=== PATIENT | female | born 1975 | race Caucasian/White ===

== ENCOUNTER → 2019-04-07 11:40 | Outpatient (CLI) | payer OTHER, SELFPAY ==
[2019-04-10 12:31] LABS: HPV Reflexed? NOT INDICATED
== END ==
PROVIDERS: Family Provider Internal Medicine; PCP Internal Medicine; Referring Provider Obstetrics & Gynecology; Visit Provider Obstetrics & Gynecology
DX: Z12.4 Encounter for screening for malignant neoplasm of cervix (principal)
CPT/HCPCS: 87624; 88175; G0145

== ENCOUNTER → 2019-04-27 14:19 | Outpatient (CLI) | payer OTHER, SELFPAY ==
--- NOTE | 2019-04-27 14:22 | BI_ITS ---
MAMMOGRAPHY - BILATERAL SCREENING 3-D TOMOSYNTHESIS REASON FOR EXAM: Female, 44 years old. Bilateral Screening 3-D tomosynthesis PERTINENT HISTORY: Breast reduction surgery in 2011. TECHNIQUE: 2-D mammograms and 3-D Tomosynthesis of the breast (s) were performed. CAD was performed. COMPARISON: July 08, 2008 FINDINGS: The breast composition is heterogeneously dense that can obscure small breast masses. Scattered benign calcifications are seen. No dense spiculated masses or suspicious microcalcifications are identified. No architectural distortion is identified. There is no skin thickening or retraction. There has been no significant change since the prior study. BI/SCREEN MAMM (CAD) W/KAILEY BILAT IMPRESSION: No mammographic signs of malignancy. Routine yearly mammograms recommended. ASSESSMENT CATEGORY: BIRADS Category 1: Negative. A letter regarding these results will be sent to the patient by the facility within 30 days. FOLLOW UP RECOMMENDATION: Yearly follow up mammogram recommended. (A) Approximately 10% of breast cancers are not detected by mammography. A normal mammogram should not delay biopsy of a clinically suspicious abnormality. Electronically Signed: Karl Painter MD at 17:43 EDT , Service support ,
== END ==
PROVIDERS: Referring Provider Obstetrics & Gynecology; Visit Provider Obstetrics & Gynecology
DX: Z12.31 Encounter for screening mammogram for malignant neoplasm of breast (principal)
CPT/HCPCS: 77063; 77067

== ENCOUNTER → 2019-10-14 15:46 | Outpatient (CLI) | payer OTHER, SELFPAY ==
[2019-10-14 19:30] LABS: Chlamydia Trachomatis by PCR Negative (Negative); Neisserai gonorrhoeae by PCR Negative (Negative); Probe Check PASS; Sample Adequacy Control PASS; Specimen Processing Control PASS
== END ==
PROVIDERS: Visit Provider Obstetrics & Gynecology
DX: Z11.3 Encounter for screening for infections with a predominantly sexual mode of transmission (principal)
CPT/HCPCS: 87491; 87591

== ENCOUNTER → 2019-11-02 14:45 | Outpatient (CLI) | payer OTHER, SELFPAY ==
[2019-11-02 17:23] LABS: Color, Urine Yellow (Yellow); Glucose, Dipstick Normal (Normal); Ketone-Dipstick 5 mg/dl (Negative); Leukocyte Esterase-Dipstick 25 /ul (Negative); Nitrite-Dipstick Negative (Negative); Occult Blood-Urine Negative /ul (Negative); Protein-Dipstick Negative (Negative); Specific Gravity, Urine 1.025 (1.002-1.030); Urine Bilirubin Dipstick Negative (Negative); Urine Clarity Sl. Cloudy (Clear); Urine Urobilinogen Normal (Normal)
[2019-11-02 17:34] LABS: Absolute Lymphocyte Count 1.65 X10^3/uL (0.83-4.51); Absolute Neutrophil Count 8.1 X10^3/uL (2.0-7.7); Basophil# 0.03 X10^3/uL; Basophil% 0.3 % (0-1); Eosinophil# 0.04 X10^3/uL; Eosinophils% 0.4 % (0-5); Hematocrit 38.9 % (37-47); Hemoglobin 12.9 g/dL (12.0-15.0); Lymphocyte # 1.65 X10^3/ul (4.0); Lymphocyte % 15.7 % (19-41); Mean Corp Hgb Conc 33.2 g/dL (32-36); Mean Corpuscular Hgb 30.4 pg (27.0-32.0); Mean Corpuscular Volume 91.7 fL (81-99); Mean Platelet Vol. 10.2 fl (6.2-12.0); Monocyte# 0.57 X10^3/uL; Monocyte% 5.4 % (0-10); NRBC Flagged by Analyzer 0 % (0-5); Neutrophil # 8.11 X10^3/uL (2.7-7.7); Neutrophil % 77.2 % (47-70); Platelet Count 270 K/mm3 (150-450); RBC Distribution Width CV 12.6 % (11.6-14.6); RBC Distribution Width SD 41.7 fl (35.1-43.9); Red Blood Count 4.24 M/mm3 (4.2-5.4); White Blood Count 10.5 K/mm3 (4.4-11.0)
[2019-11-02 18:01] LABS: Thyroid Stim Hormone (TSH) 0.74 uIU/mL (0.358-3.74)
[2019-11-02 19:05] LABS: Amphetamine Urine VISTA NEGATIVE (<1000 ng/mL); Barbiturate Urine VISTA NEGATIVE (< 200 ng/mL); Benzodiazepine Urine VISTA NEGATIVE (< 200 ng/mL); Cocaine Urine VISTA NEGATIVE (< 300 ng/mL); Ecstacy Urine VISTA NEGATIVE (< 500 ng/mL); Methadone Urine VISTA NEGATIVE (< 300 ng/mL); PCP Urine VISTA NEGATIVE (< 25 ng/mL); THC Urine VISTA NEGATIVE (< 50 ng/mL); Vista UDS pH Range 6
[2019-11-03 09:55] LABS: HIV - WCH Non-Reactive (Nonreactive); Hepatitis B Surface Antigen Non-Reactive (Nonreactive); Hepatitis C Antibody Non-Reactive (Nonreactive); Rubella IgG > 500.0 IU/mL
[2019-11-05 02:24] LABS: Prenatal RPR NONREACTIVE (NONREACTIVE)
== END ==
PROVIDERS: Visit Provider Advanced Practice Midwife
DX: Z34.81 Encounter for supervision of other normal pregnancy, first trimester (principal)
CPT/HCPCS: 36415; 80307; 81002; 84443; 85025; 86703; 86762; 86803; 87340

== ENCOUNTER → 2020-03-03 17:27 | Outpatient (CLI) | payer OTHER, SELFPAY ==
[2020-03-03 17:52] LABS: Hematocrit 32.6 % (37-47); Hemoglobin 10.4 g/dL (12.0-15.0); Mean Corp Hgb Conc 31.9 g/dL (32-36); Mean Corpuscular Hgb 28.3 pg (27.0-32.0); Mean Corpuscular Volume 88.6 fL (81-99); Mean Platelet Vol. 9.5 fl (6.2-12.0); Platelet Count 203 K/mm3 (150-450); RBC Distribution Width CV 13.5 % (11.6-14.6); RBC Distribution Width SD 43.8 fl (35.1-43.9); Red Blood Count 3.68 M/mm3 (4.2-5.4); White Blood Count 12.2 K/mm3 (4.4-11.0)
[2020-03-03 17:54] LABS: Glucose Challenge Gest 1H 50g 140 mg/dL (70-140)
== END ==
PROVIDERS: Referring Provider Obstetrics & Gynecology; Visit Provider Obstetrics & Gynecology
DX: Z34.83 Encounter for supervision of other normal pregnancy, third trimester (principal)
CPT/HCPCS: 82950; 85027

== ENCOUNTER 2020-05-16 09:45 | Inpatient (IN) | payer OTHER, SELFPAY ==
--- NOTE | 2020-05-15 21:21 | PCM.HP.BLA ---
History and Physical Date of Admission: 05/16/20 ACOG ANTEPARTUM RECORD - HISTORY AND PHYSICAL (05/15/2020) Name: PRINCESS OCONNELL History of This : This is a 45-year-old G5, P3 Ab1 who presents for repeat section at 39 weeks 1 day gestation. care is remarkable for 3 prior sections. OB Physician: PEGGY 's Physician: Santiago ...................................................................... : 1975 Age: 45 Address: [address] [place] [address] Phone: (H) [phone] (O) [phone] Insurance Carrier: [facility] [id number] Emergency Contact: TORRESVIKI MORTENSEN [phone] ...................................................................... Final CHRISTINA: 05/22/20 By Ultrasound: 8 weeks 3 days PARITY: (G-Total Pregnancies P-Fullterm,Premature,Induced AB,Spont AB, Ectopics, Multiple,Living) CHRISTINA CONFIRMATION: By LMP: 08/19/19 Initial Exam: 05/25/20 By First Ultrasound Exam: 05/22/20 Final CHRISTINA: 05/22/20 OB PROBLEM LIST: ALLERGIES- FLUOXETINE, ROBITUSSIN AC, NUVA RING. ?LGA at 3D u/s in [place]. Start weekly NST at 34 wks gestation. AMA Declines AFP and CF. [id number] drawn at NOB visit. Had Breast Reduction surgery 2011 Wants to nurse.. Advised [facility] [place] book After Reduction Surgery. THREE prior C sections Plan repeat C section ALLERGIES: Fluoxetine Despair, upset stomach, more tearful Fluoxetine Mood changes NuvaRing Itching of skin Robitussin A-C Hallucinations Tussinex Hallucinations MEDICATIONS: ferrous sulfate 325 mg (65 mg iron) tablet One pill by mouth once a day hydroxyzine HCl 25 mg tablet One or two pill by mouth three times a day prn itching 28 mg iron-800 mcg tablet One pill by mouth once a day SOCIAL HISTORY: Smoking - used to smoke but quit and 2002 Alcohol Use - socially not while Diet - moderate, balanced diet and 1-2 cups of coffee qd. Water 1-2liters day. Lifestyle - moderate stress lifestyle and getting divorce Exercise - minimal and Enc to walk 20 min qd. 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 Illicit Drug Use - None Sexual Activity - did not discuss sexual history Residence - owns a home Place of - [employer] Hours Worked - 35 HRS Spouse-Sig Other Name - Dwayne COLESB Spouse-Sig Other Occupation - [employer], cement dry chain operator Spouse-Sig Other Phone No - [phone] Children Name(s) - Justin Barun (OBDULIO), Chivo Brantley-2009 (OBDULIO) PRIOR DELIVERY HISTORY DEL DATE GEST LAB WT LB WT OZ TYPE ANES LABOR TX Feb 07 39 0 8 2 C-Sec Spinal No March 07 39 0 10 0 C-Sec Spinal No March 13 38 0 8 2 C-Sec Spinal No ANTEPARTUM FLOW CHART VISIT GE RTC FU F F HI U U DATE WK MD WKS HT PN HR M SS BP ED WT HI GL D EF ST __ ____ ___ __ __ ___ __ __ __ ___ __ __ __ ___ __ 08 May JMW 3 41 + + 126/64 1+ 236 - - 01 May CH 1 44 + + 110/64 1+ 238 ne ne Apr 36 JMW 1 40 + + 122/70 1+ 236 - - 18 Apr JMW 1 41 + + 124/72 1+ 233 tr - 10 Apr JMW 1 39 + + 112/70 1+ 233 tr - 18 April 03 JMW 3 31 + + 110/60 1+ 222 tr - 30 Mar 01 JMW 3 28 + + 132/66 1+ 219 - - 30 Jan 25 JMW 4 + / 0 02 Jan 21 JMW 4 20 + + 132/80 sl 200 tr - 27 Nov 18 JMW 4 15 + 114/60 tr 186 tr ne 30 Oct 14 KW 4 on US 100/74 0 171 tr - ANTEPARTUM NOTE(S): May 11 2020: see note May 04 2020: Apr 28 2020: Good FM, reactive NST Apr 21 2020: Itching all over, check bile acids Apr 13 2020: NST-R March 21 2020: see note Mar 03 2020: CBC,OGCT Today,Good FM,Feeling Well Feb 01 2020: Telemed: Doing well. Will stop by for glucola Jan 03 2020: Sono Today,Good FM Nov 30 2020: Declines AFP Nov 02 2019: feeling well. NOB visit today. COMPREHENSIVE ANTEPARTUM NOTE(S): May 11 2020: Princess is here for PNV/ preop. scheduled for 05/16/2000. Procedure consents reviewed and signed. Ensure instructions given. Told pt to call with any questions she has before procedure. Good FM. 1+ edema in feet, sl in hands. Very excited to have baby and no complaints at this time. MK May 04 2020: Princess is here for NST and appt at 37.3 w. Having cramping at home. No SROM or show. Baby active. Questions about nursing post breast reduction discussed. Baby will need close follow up of weight by ped, Dr Henderson. Asks about taking goat's rue as recommended by IBCLC in [place]. Per CH not to take during . Skin to skin with rooming in and frequent suggested with observation of output. She is agreeable. NST read as reactive by NEHAL. DARCY. May 04 2020: NST reactive with FHR baseline 130. Reports +FM. Has csection scheduled already and understands signs of labor and to call if going into labor prior to section date. To return in 1 week for NST and PNV with JW. Covid testing order faxed and paper given. Denies any other concerns at this time. - Apr 28 2020: Princess is here for her NST at 36 w 4 d. She states that she is tired and uncomfortable. Last night she had period like cramps. Denies spotting/LoF. +1 edema noted below knees. Princess states that she feels good FM. NST reactive, read per Dr. Ahmadi. AW Apr 21 2020: Princess presents here today for NST and PNV. Reports she continues to itch all over her body and Benadryl is ineffective. Denies visible rash at this time. Good FM. Reactive NST. STEVIE Apr 13 2020: Princess is here for a NST at 34 w 3 d; EEFM/NST explained. She states that she is feeling hot and miserable. Good FM reported. She denies spotting/LoF. Notes occasional mild cramping. +1 edema noted. NST reactive, read per Dr. Ahmadi. AW Mar 21 2020: Princess is being seen for PNV. She is feeling well and has been having an increase in swelling. Pt would like to discuss time off for maternity leave. 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 AM Nov 02 2019: Princess is here for NOB nurse visit as a 44 yo G 5 P 3 with CHRISTINA 05-22-20 planning a RCS at [facility] w spinal, using Dr Henderson for post disch ped care and to breastfeed. 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 She is and is engaged to Dwayne Oconnell who works for [employer] as a cement dry chain operator. This is his first baby. They are excited about the baby. Sandra has 15, 13 and 9 year old children. She is allergic to fluoxetine, Robitussin AC and the Nuva Ring. She has no food or latex allergies. She is allergic to cats. She drinks occ but not once pg was realized. She is a non smoker and denies any street drug use. Sandra's diet is balanced w one cup of coffee daily and about 2 liters of water. Enc to increase water as she can. She is active w her family and job and was enc to walk 20 min q day unless inclement weather or use their treadmill. Genetics Screening form completed noting no family issues. She declines CF and AFP but is having [id number] drawn today with routine labs. Warning signs in pg reviewed as well as OTC meds ok to take., lifting restrictions of 25#, reaching the office after hours and the importance of protein in her diet w understanding voiced. She has a copy of What to Expect. She is aware of litter box issues. Office info for Saturday Childbirth Class given and discussed. Sandra's past history includes breast reduction surgery w removal of 3# of tissue. Her surgeon said her odds of were 50 50. Advised to get the book by Rachel Daley Defining Your Own Success, After Reduction Surgery which she plans to do. Enc to call w any concerns or questions she may have. Visit took approx one hour. Marin WILSON. Nov 02 2019: Feeling well; denies cramping, VB, LOF; Dating US, labs drawn and NOB visit today; growth on US inconsistent w/LMP, changed CHRISTINA to 05/17., 11w6d gestationtoday; discussed warning signs, s/s PTL; RTO 4 weeks for PNV - KVW Oct 14 2019: ok Oct 14 2019: Princess presents here today with FOB(Dwayne) for Missed Menses appointment. 44 y.o. G 5 P 3 non-smoker withhistory of regular menses and LMP of 10-16-19 lasting 5 days. UPT is positive today in our Office. Presents at 7 weeks 6 days with an approximate CHRISTINA of 05-25-20 and plans Repeat at [facility] with history of three C-Sections with last in 2009. Reports having daily nausea and tender breasts. Denies spotting/bleeding thus far, with review of danger signs and bleeding in . Currently taking an OTC Vitamin and Educational Materials given. Medication and Allergy lists up-dated. History of normal pap screening in 04/2019. STEVIE REVIEW OF SYSTEMS: GENERAL - Denies fever, or chills SKIN - Denies rash, new skin lesions, or change in moles EYES - Denies blurred vision, or change in visual acuity EARS - Denies ear pain, or difficulty hearing NOSE - Denies nasal congestion, discharge, or bleeding MOUTH - Denies sore throat, or difficulty swallowing NECK - Denies pain or swelling RESPIRATORY - Denies shortness of breath, cough, wheezing CARDIOVASCULAR - Denies palpitations, chest pain, orthopnea, PND, peripheral edema, syncope or claudication GASTROINTESTINAL - Denies nausea, vomiting, diarrhea, constipation, Denies abdominal pain, melena and or bright red blood GENITOURINARY - Denies dysuria, frequency of urination, urgency, or hesitancy MUSCULOSKELETAL - Denies joint or muscle pain, or back pain NEUROLOGICAL - Denies localized numbness, weakness, or tingling PSYCHIATRIC - Denies depression, anxiety, substance abuse or suicide attempts ENDOCRINE - Denies heat or cold intolerance, weight loss or gain, increasing thirst HEMATO-IMMUNOLOGIC - Denies easy bruising, bleeding, oral ulcerations or recurrent infections GENETICS SCREENING: Age 35+ years: Yes Thalassemia: No Neural Tube Defect: No Down Syndrome: No AMELIA-SACHS: No Sickle Cell Disease: No Hemophilia: No Musc. Dystrophy: No Cystic Fibrosis: No-declines screening Zoey Chorea: No Mental Retardation: No Fragile X: No Other genetic: No Other defects: No SABs/still births: Yes x1 Drugs since LMP: No INFECTION HISTORY: High risk AIDS: No High risk Hepatitis: No Exposed to TB: No Exposed to Herpes: ?, not been tested Rash/viral illness since LMP: No History of STD: Trichomonas MENSTRUAL HISTORY: *Menses Amount/Duration: 6 daysMenses Regularity: RegularFrequency: monthlyBCP's at Conception: NoMenarche (Age Onset): 10HCG+: 06/09/2005* PAST SUMMARY: PARITY: 1. Total Pregnancies............ 5 2. Full Term Pregnancies........ 3 3. Premature.................... 0 4. Abortions - Induced.......... 0 5. Abortions - Spontaneous...... 1 6. Ectopics..................... 0 7. Multiple Births.............. 0 8. Living Children.............. 3 PAST #2: Date of :.................. 03/13/04 Gestation Weeks:................ 39 Length of labor(hours):......... 0 Sex:............................ M Weight-lbs:............... 10 Weight-oz:................ 0 Type of Delivery:............... C-Sect Type of Anesthesia:............. Spinal Place of Delivery:.............. [place] Treatment of Labor?:.... No Comment: MARIO PAST #3: Date of :.................. 02/08/06 Gestation Weeks:................ 39 Length of labor(hours):......... 0 Sex:............................ F Weight-lbs:............... 8 Weight-oz:................ 2 Type of Delivery:............... C-Sect Type of Anesthesia:............. Spinal Place of Delivery:.............. [place] Treatment of Labor?:.... No Comment: PAST #4: Date of :.................. 03/14/10 Gestation Weeks:................ 38 Length of labor(hours):......... 0 Sex:............................ M Weight-lbs:............... 8 Weight-oz:................ 2 Type of Delivery:............... C-Sect Type of Anesthesia:............. Spinal Place of Delivery:.............. [place] Treatment of Labor?:.... No Comment: NO PHYSICAL EXAMINATION General Appearence: 45 yo female in no acute distress Vital Signs: AF, VSS Heart: RRR without rubs or gallops Lungs: CTA x 2 Breasts: deferred Abdomen: gravid Pelvis: Cervix: Presentation: cephalic Station: Fetus: Size: AGA Movement: present Heart: present Labs for : PRINCESS OCONNELL since 08/26/2019 ORDER DATEIN DESCRIPTION VALUE UNITS RANGE A+ COMMENT BILE ACIDS 04/21/20 BILE ACIDS 5.1 umol/L 0.0-10.0 Reviewed by ANGELI GLUCOSE CHALLENGE GEST 1H 50G 03/03/20 NOTE Original Ordering Provider: Angeli Ahmadi GLU GEST 50G 1H 140 mg/dL 70-140 Reviewed by ADIS CBC-COMPLETE BLOOD CNT NO DIFF 03/03/20 NOTE Original Ordering Provider: Angeli Ahmadi WBC 12.2 K/mm3 4.4-11.0 H RBC 3.68 M/mm3 4.2-5.4 L HGB 10.4 g/dL 12.0-15.0 L HCT 32.6 % 37-47 L MCV 88.6 fL 81-99 MCH 28.3 pg 27.0-32.0 MCHC 31.9 g/dL 32-36 L RDW CV 13.5 % 11.6-14.6 RDW SD 43.8 fl 35.1-43.9 PLT 203 K/mm3 150-450 MPV 9.5 fl 6.2-12.0 Reviewed by ADIS [id number] PLUS CORE 11/02/19 GESTATION [place] Gestation FRACTION 5% GESTATIONAL AGE > 9: Yes CHROMOSOME 21 Negative CHROMOSOME 18 Negative CHROMOSOME 13 Negative INTERPRETATION This specimen showed an expected representation of chromosome 21, 18 and 13 material. Clinical correlation is suggested. Y CHROMOSOME Not Detected Y CHROMOSOME INTERPRETATION Consistent with a female fetus. 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 The extracted DNA was then converted into a genomic DNA library for aneuploidy analysis of chromosomes 21, 18, and 13 via next generation sequencing.[1] Optional findings based on the test order include sex chromosome aneuploidy (SCA), and enhanced sequencing series (ESS), which will only be reported on as an additional finding when an abnormality is detected. SCA testing includes information on X and Y representation, while ESS testing includes deletions in selected regions (22q, 15q, 11q, 8q, 5p, 4p, 1p) and trisomy of chromosomes 16 and 22. ABOUT THE TEST The MaterniT(R) 21 PLUS laboratory-developed test (LDT) analyzes circulating cell-free DNA from a maternal blood sample. The test is indicated for use in women with increased risk for chromosomal aneuploidy. Validation data on twin pregnancies is limited and the ability of this test to detect aneuploidy in a triplet has not yet been validated. PERFORMANCE The performance characteristics of the MaterniT(R) 21 PLUS laboratory-developed test (LDT) have been determined in a clinical validation study with women at increased risk for chromosomal aneuploidy.[1,2] The negative predictive value for trisomy 21, 18 and 13 is greater than 99%. PERFORMANCE DATA Note Trisomy 21 Sensitivity: 99.1%; CI: 96.3-99.8% Trisomy 21 Specificity: 99.9%; CI: 99.6-99.9% Trisomy 18 Sensitivity: >99.9%; CI: 92.4-100.0% Trisomy 18 Specificity: 99.6%; CI: 99.2-99.8% Trisomy 13 Sensitivity: 91.7%; CI: 59.7-99.6% Trisomy 13 Specificity: 99.7%; CI: 99.3-99.9% Y Chromosome Accuracy: 99.4%; CI: 99.0-99.6% LIMITATIONS OF THE TEST While the results of these tests are highly accurate, discordant results, including inaccurate sex prediction, may occur due to placental, maternal, or mosaicism or neoplasm; vanishing twin; prior maternal organ transplant; or other causes. Sex chromosomal aneuploidies are not reportable for known multiple gestations. These tests are screening tests and not diagnostic; they do not replace the accuracy and precision of diagnosis with CVS or amniocentesis. A patient with a positive test result should be referred for genetic counseling and offered invasive diagnosis for confirmation of test results.[3] A negative result does not ensure an unaffected nor does it exclude the possibility of other chromosomal abnormalities or defects which are not a part of these tests. An uninformative result may be reported, the causes of which may include, but are not limited to, insufficient sequencing coverage, noise or artifacts in the region, amplification or sequencing bias, or insufficient fraction. These tests are not intended to identify pregnancies at risk for neural tube defects or ventral wall defects. Testing for whole chromosome abnormalities (including sex chromosomes) and for subchromosomal abnormalities could lead to the potential discovery of both and maternal genomic abnormalities that could have major, minor, or no, clinical significance. Evaluating the significance of a positive or a non-reportable result may involve both invasive testing and additional studies on the mother. Such investigations may lead to a diagnosis of maternal chromosomal or subchromosomal abnormalities, which on occasion may be associated with benign or malignant maternal neoplasms. These tests may not accurately identify triploidy, balanced rearrangements, or the precise location of subchromosomal duplications or deletions; these may be detected by diagnosis with CVS or amniocentesis. The ability to report results may be impacted by maternal BMI, maternal weight, maternal systemic lupus erythematosus (SLE) and/or by certain pharmaceutical agents such as low molecular weight heparin (for example: Lovenox(R), Xaparin(R), Clexane(R) and Fragmin(R)). The results of this testing, including the benefits and limitations, should be discussed with a qualified healthcare provider. management decisions, including termination of the , should not be based on the results of these tests alone. The healthcare provider is responsible for the use of this information in the management of their patient. NOTE This test was developed and its performance characteristics determined by [facility]. It has not been cleared or approved by the Food and Drug Administration. This laboratory is certified under the Clinical Laboratory Improvement Amendments (CLIA) as qualified to perform high complexity clinical laboratory testing and accredited by the College of [place] [employer] (CAP). If there is future clinical need for adding MaterniT GENOME testing, this specimen will be available until term. [facility] samples will not be retained beyond [address] [facility] patients will have to send a new sample for re-sequencing ([facility] Test Code: 964121). REFERENCES 1. Dary SERRATO et al. Melissa Med. 2012;14(3):296-305. 2. Dary SERRATO et al. Melissa Med. 2011;13(11):913-920. 3. ACOG/SM Joint Committee Opinion No. 545, Oct 2012. PDF . Reviewed by ANGELI CROOK RPR 11/02/19 NOTE Original Ordering Provider: PHILL Nolen RPR NONREACTIVE NONREACTIVE Reviewed by ANGELI HEPATITIS C ANTIBODY 11/02/19 NOTE Original Ordering Provider: PHILL Nolen HEPATITIS C AB Non-Reactive Nonreactive Non Reactive: < 0.8 Equivocal: >/= 0.8 to < 1.0 Reactive: >/= 1.0 The CDC recommends that a reactive/equivocal HCV antibody result be followed up by the HCV Nucleic Acid Amplification test (201044) Reviewed by ANGELI HEPATITIS B SURFACE ANTIGEN 11/02/19 NOTE Original Ordering Provider: PHILL Nolen HEPB SURFACE AG Non-Reactive Nonreactive Reviewed by ANGELI HIV - [facility] 11/02/19 NOTE Original Ordering Provider: PHILL Nolen HIV - [facility] Non-Reactive Nonreactive Reviewed by ANGELI RUBELLA IGG 11/02/19 NOTE Original Ordering Provider: PHILL Nolen RUBELLA IGG > 500.0 IU/mL Antibody results Interpretation of Immune Status < 5 IU/ml Presumed Non-immune 5 - < 10 IU/ml Equivocal > or = 10 IU/ml Presumed Immune Reviewed by ANGELI T AND S-NO CHARGE W/PNP 11/02/19 Reason for Type AND Screen/Red Cells: Surgery? [facility]~[id number] [place], [address]~ BLOOD TYPE GEL B POSITIVE N AB SCREEN GEL NEGATIVE N Reviewed by ANGELI URINALYSIS, ROUTINE (DIPSTICK) 11/02/19 NOTE Original Ordering Provider: PHILL Nolen COLOR Yellow Yellow CLARITY Sl. Cloudy Clear GLUCOSE, UR Normal mg/dl Normal BILIRUBIN URINE Negative mg/dL Negative KETONE UR 5 mg/dl Negative H SP.GR. DIPSTX 1.025 1.002-1.030 PH UR 6.0 5.0 - 8.0 PROT DIPSTX Negative mg/dl Negative UROBILI Normal mg/dl Normal NITRITE UR Negative Negative OCCULT BLOOD-UR Negative /ul Negative LEUK ESTERASE 25 /ul Negative H Reviewed by ANGELI URINE DRUG SCREEN (VISTA) 11/02/19 NOTE Original Ordering Provider: PHILL Nolen TO BE CONFIRMED CONFIRMATORY TESTING FOR ALL POSITIVE URINE DRUG SCREEN RESULTS WILL ONLY BE SENT OUT UPON PHYSICIAN ORDER. VISTA Urine Drug Screen methods provide only preliminary analytical test results. A more specific alternate chemical method must be used in order to obtain a confirmed analytical result. Gas chromatography/mass spectrometery (GC/MS) is the preferred confirmatory method. Clinical consideration and professional judgement should be applied to any drug of abuse test result, particularly when preliminary positive results are used. URINE TCA TESTING MUST BE ORDERED SEPARATELY. USE TEST MNEMONIC: [facility]IST[facility] UDS PH 6 AMPHETAMINES NEGATIVE <1000 ng/mL BARBITIURATES NEGATIVE < 200 ng/mL BENZODIAZIPINE NEGATIVE < 200 ng/mL COCAINE NEGATIVE < 300 ng/mL ECSTACY NEGATIVE < 500 ng/mL METHADONE NEGATIVE < 300 ng/mL OPIATES NEGATIVE < 300 ng/mL PCP NEGATIVE < 25 ng/mL THC NEGATIVE < 50 ng/mL Reviewed by ANGELI THYROID STIM HORMONE (TSH) 11/02/19 NOTE Original Ordering Provider: PHILL Nolen TSH 0.74 uIU/mL 0.358-3.74 Reviewed by ANGELI CBC W/DIFF, AUTOMATED 11/02/19 NOTE Original Ordering Provider: PHILL Nolen WBC 10.5 K/mm3 4.4-11.0 RBC 4.24 M/mm3 4.2-5.4 HGB 12.9 g/dL 12.0-15.0 HCT 38.9 % 37-47 MCV 91.7 fL 81-99 MCH 30.4 pg 27.0-32.0 MCHC 33.2 g/dL 32-36 RDW CV 12.6 % 11.6-14.6 RDW SD 41.7 fl 35.1-43.9 PLT 270 K/mm3 150-450 MPV 10.2 fl 6.2-12.0 NEUT% 77.2 % 47-70 H LY% 15.7 % 19-41 L MONO% 5.4 % 0-10 EO% 0.4 % 0-5 BASO% 0.3 % 0-1 IM GRAN % 1.000 % 0.0-0.9 H IG% - Immature Granulocytes (promyelocytes, myelocytes and metamyelocytes) > 1% indicates that a LEFT SHIFT is Present. ABSOLUTE NEUT 8.1 X10 3/uL 2.0-7.7 H ABSOLUTE LYMPH 1.65 X10 3/uL 0.83-4.51 NRBC, FLAGGED 0 % 0-5 Reviewed by ANGELI OTOOLE/KHARI [facility] BY PCR 10/14/19 NOTE Original Ordering Provider: Angeli LINARES [facility] PCR Negative Negative KHARI BY PCR Negative Negative Reviewed by ANGELI PROVIDER SIGNATURE ( REQUIRED) Impression /Plan: 39+ week intrauterine for repeat section. Preparations in progress for delivery.
[2020-05-16] VITALS (16 sets, daily range): BP systolic 92–126; BP diastolic 45–74; PULSE 72–94; RESP 16–18; TEMP 36.2–36.7; O2SAT 97–100; BMI 41.8
[2020-05-16] MEDS: Lactated Ringers 1,000 ML 999 ML IV (10:20)
[2020-05-16 10:35] LABS: Absolute Lymphocyte Count 0.98 X10^3/uL (0.83-4.51); Absolute Neutrophil Count 5.7 X10^3/uL (2.0-7.7); Basophil# 0.02 X10^3/uL; Basophil% 0.3 % (0-1); Eosinophil# 0.01 X10^3/uL; Eosinophils% 0.1 % (0-5); Hematocrit 32.5 % (37-47); Hemoglobin 9.8 g/dL (12.0-15.0); Lymphocyte # 0.98 X10^3/ul (4.0); Lymphocyte % 13.6 % (19-41); Mean Corp Hgb Conc 30.2 g/dL (32-36); Mean Corpuscular Hgb 25.7 pg (27.0-32.0); Mean Corpuscular Volume 85.1 fL (81-99); Mean Platelet Vol. 9.5 fl (6.2-12.0); Monocyte# 0.47 X10^3/uL; Monocyte% 6.5 % (0-10); NRBC Flagged by Analyzer 0 % (0-5); Neutrophil # 5.71 X10^3/uL (2.7-7.7); Neutrophil % 79.2 % (47-70); Platelet Count 208 K/mm3 (150-450); RBC Distribution Width SD 60.5 fl (35.1-43.9); Red Blood Count 3.82 M/mm3 (4.2-5.4); White Blood Count 7.2 K/mm3 (4.4-11.0)
[2020-05-16] MEDS: Acetaminophen 500 MG Tablet 1000 MG PO ×2 (10:58→18:46)
[2020-05-16] MEDS: Lactated Ringers 1,000 ML 150 ML IV (11:21)
[2020-05-16] MEDS: Sodium Citrate/Citric Acid 30 ML UDC PO (12:28)
[2020-05-16] MEDS: Cefazolin 2 GM in 0.9% Normal Saline 100 ML IV (12:32)
[2020-05-16] MEDS: Oxytocin 30 units/NS 500 ml 30 UNITS/500 ML IV.SOLN 167 UNITS IV (12:41)
--- NOTE | 2020-05-16 12:47 | OP.PCM_ITS ---
Delivery Classification: Scheduled Final CHRISTINA: 05/22/20 Final CHRISTINA Source: US <20 weeks Gestational age: 39 Weeks and 1 Days port cdl a driver: Destiny Allen Type of Anesthesia:: Spinal - With Duramorph Implants Used: None Date of Procedure: 05/16/20 Pre-Operative Diagnosis: Prior Section Post-Operative Diagnosis: Prior Section Description of Procedure: Surgeon: Luis Alberto Ahmadi MD, FACOG Anesthesia: Michael Jimenez CRNA Procedure: Repeat Low Transverse Cervical Caesarean Section Findings: Viable female with Apgars of 9/10 in occiput anterior presentation with clear amniotic fluid and normal three-vessel placenta. Indication: This is a 45-year-old who presents for her fourth at 39+ weeks gestation. care has otherwise been uneventful. The patient has been counseled regarding the risk and indications of this procedure including the possibility of bleeding infection and injury to surrounding structures such as bowel bladder. All questions were answered. Procedure: Patient was taken to the operating room where after spinal anesthesia was placed, the patient was prepped and draped in usual sterile fashion and a Oates catheter was placed. The abdomen was entered through the patient's prior Pfannenstiel incision and peritoneum was entered bluntly. After developing a bladder flap on the lower uterine segment a low transverse incision was made on the uterus and head was easily delivered onto the operative field the nose mouth and oropharynx were bulb suctioned. Subsequently a viable female was born with Apgars of 9/10. The infant was noted to cry move all extremities vigorously on the operative field. The umbilical cord was doubly clamped and ligated and handed to the nursery personnel who were present for the delivery. Placenta was delivered and noted to be 3 vessels and normal. Uterus was exteriorized and remaining placental tissue was removed. The uterus was then closed in 2 layers first with running locked 0 Vicryl suture followed by a second imbricating layer with 0 Vicryl suture. 0 Vicryl suture was then used in a horizontal mattress interrupted fashion to affect final hemostasis of the uterine incision line. Normal fallopian tubes and ovaries were visualized and the uterus was returned to the pelvis. Hemostasis was noted and rectus abdominis muscles were reapproximated in the midline with interrupted Number 0 Vicryl suture in a horizontal mattress fashion. Fascia was closed with running Number 1 PDS Strata fix suture. Subcutaneous tissue was irrigated with copious amounts of saline solution and then closed with running 3-0 Vicryl suture in 2 layers. Skin was closed with 4-0 monocryl suture in a running subcuticular fashion. Steri strips and a Mepilex dressing were placed across the incision. The patient tolerated the procedure well and was taken to the recovery room in satisfactory condition. Sponge, needle, and instrument counts were all reportedly correct. EBL was less than 500 cc. Cefotan 2 gms IV was given prior to the procedure. Spicemen to Pathology: None Complications: None Amniotic Membrane Rupture Type: Spontaneous Amniotic Fluid Description: Clear Placenta Disposition: [facility] Drain: Oates to straight drain Cord Entanglement: None Cord Vessel Description: 3 Vessels Esitmated Blood Loss (ml): 500 cc Antibiotic Given: Cefotan 2gm IV x1 Pt instructed on risks of surgery: Bleeding, Infection, Injury to surrounding structure(s) including bowel and bladder Complications: None - Admit VTE Documentation VTE Present on Admission: Yes VTE Mechan Device Prophylaxis: SCD's VTE Pharm Prophylaxis ordered?: Yes
--- NOTE | 2020-05-16 12:49 | DCINST_ITS ---
<Luis Alberto Ahmadi - Last Filed: 05/16/20 12:49> Discharge Diet: No Restrictions Discharge Activity: May Not Drive - for 2 weeks, May not drive while taking narcotic pain medications., May Shower, May Take a Tub Bath May resume sexual activity in: 4-6 weeks Lifting Restrictions: 20 pounds Additional Activity Instructions:: Nothing in the vagina for 4-6 weeks. You may return to work/school in 6 weeks. Call your doctor if your incision/area has: Continuous Slow Oozing, Sudden Increased Bleeding, Increased Pain/ Swelling, Increased Redness, Foul Smelling Discharge Call your doctor if you observe: Fever of 101 or Higher, Inability to urinate, Inability to have a bowel movement, Using more than one pad per hour Additional Instructions: If you experience any of the following, contact your healthcare provider. * Bleeding that soaks a pad every hour for 2 hours * Fever 100.4 or higher * Unrelieved incision or abdominal pain * Swelling, redness, discharge or bleeding from your incision or episiotomy site * Your incision begins to separate * Problems urinating (including inability to urinate or burning while urinating). * Visual changes * Severe headache * Flu-like symptoms * Pain or redness in one of both of your breasts * Pain, warmth, tenderness or swelling in your legs, especially the calf area * Frequent nausea and vomiting * Symptoms of depression or anxiety If you experience any of the following, call 911 or go to the nearest Emergency Room. * Chest pain * Problems breathing * Seizure activity * Partial or complete paralysis of a body part, slurred speech, weakness or drooping of the face, or a sudden inability to walk or hold your balance Allergies/Adverse Reactions: Allergies nuvaring Allergy (Severe, Uncoded 05/16/20 10:15) Itching Medications to take at Discharge Docusate Sodium [Colace] 100 mg PO BID PRN PRN #60 cap 05/16/20 Ferrous Sulfate 325 mg PO 05/16/20 Oxycodone [Oxyir] 5 mg PO Q6H PRN PRN 7 Days #20 tab 05/16/20 Vit No.130/Iron/Folic [ Tablet] 1 ea PO 05/16/20 The following prescriptions were given: Docusate Sodium [Colace] 100 mg PO BID PRN PRN #60 cap PRN Reason: Constipation Transmission Status: Received by [facility]/pharmacy #[id number] Oxycodone [Oxyir] 5 mg PO Q6H PRN PRN 7 Days #20 tab PRN Reason: Pain Score 6-10/10 Transmission Status: Received by [facility]/pharmacy #[id number] Follow-Up: Call to make an appointment with your doctor for an incision check in 1-2 weeks. You will also need a 6 week post- follow up appointment. Test results from this visit will be discussed in further detail at your follow- up appointment, if applicable. Please Follow Up With: Luis Alberto Ahmadi MD - [phone] When: Call to make an appointment for an incision check in 2 weeks. Primary Care Physician: Care Physician,No Primary [Primary Care Provider] - <Violeta Breaux - Last Filed: 05/18/20 08:45> Discharge Diet: No Restrictions Discharge Activity: May Not Drive - for 2 weeks or while taking narcotic pain meds., May Shower, May Take a Tub Bath - in 7 days. May resume sexual activity in: 4-6 weeks Lifting Restrictions: 20 pounds Additional Activity Instructions:: Nothing in the vagina for 4-6 weeks. You may return to work/school in 6 weeks. Call your doctor if your incision/area has: Continuous Slow Oozing, Sudden Increased Bleeding, Increased Pain/ Swelling, Increased Redness, Foul Smelling Discharge Call your doctor if you observe: Fever of 101 or Higher Suture Line Care: Avoid Pulling/Pushing, Avoid Pinching/Bending Additional Instructions: If you experience any of the following, contact your healthcare provider. * Bleeding that soaks a pad every hour for 2 hours * Fever 100.4 or higher * Unrelieved incision or abdominal pain * Swelling, redness, discharge or bleeding from your incision or episiotomy site * Your incision begins to separate * Problems urinating (including inability to urinate or burning while urinating). * Visual changes * Severe headache * Flu-like symptoms * Pain or redness in one of both of your breasts * Pain, warmth, tenderness or swelling in your legs, especially the calf area * Frequent nausea and vomiting * Symptoms of depression or anxiety If you experience any of the following, call 911 or go to the nearest Emergency Room. * Chest pain * Problems breathing * Seizure activity * Partial or complete paralysis of a body part, slurred speech, weakness or drooping of the face, or a sudden inability to walk or hold your balance Follow-Up: Call to make an appointment with your doctor for an incision check in 1-2 weeks. You will also need a 6 week post- follow up appointment. Test results from this visit will be discussed in further detail at your follow- up appointment, if applicable.
[2020-05-16] MEDS: Lactated Ringers 1,000 ML 100 ML IV (17:41)
[2020-05-16] MEDS: Ketorolac 30 MG/ML Syringe IV (19:59)
[2020-05-16] MEDS: Cefazolin 1 GM/50 ML BAG IV (20:30)
[2020-05-17] VITALS (11 sets, daily range): BP systolic 98–106; BP diastolic 43–59; PULSE 73–92; RESP 16–18; TEMP 36.2–36.8; O2SAT 97–100
[2020-05-17] MEDS: Acetaminophen 500 MG Tablet 1000 MG PO ×4 (00:50→18:47)
[2020-05-17] MEDS: Ketorolac 30 MG/ML Syringe IV ×3 (01:04→14:51)
[2020-05-17] MEDS: 0.9% Saline Lock 10 ML Syringe IV ×4 (01:05→14:51)
[2020-05-17] MEDS: Enoxaparin 40 MG/0.4 ML Syringe SC ×2 (01:29→22:55)
[2020-05-17] MEDS: Cefazolin 1 GM/50 ML BAG IV ×2 (04:28→12:13)
--- NOTE | 2020-05-17 04:47 | PN.OBGYN_ITS ---
Subjective: Patient without complaints. Tolerating diet well. Minimal vaginal bleeding. Breast-feeding going well. Objective: Wound reportedly clean and dry with Mepilex dressing in place. Good urine output. Hemoglobin pending from this morning. - Physical Exam Vitals/I&O's: Vital Signs Temp Pulse Resp BP Pulse Ox 97.1 F L 76 18 98/59 L 100 05/17/20 00:45 05/17/20 02:50 05/17/20 02:50 05/17/20 00:45 05/17/20 02:50 Oxygen Delivery Method Room Air Weight: 236 lb Body Mass Index (BMI) 41.8 Intake and Output for Last 24 Hours 05/15/20 05/16/20 05/17/20 23:59 23:59 23:59 Intake Total 3940.67 / 3940.67 1218.33 / 1218.33 Output Total 850 / 850 600 / 600 Balance 3090.67 / 3090.67 618.33 / 618.33 Laboratory Results 05/16/20 10:20: WBC 7.2, RBC 3.82 L, Hgb 9.8 L, Hct 32.5 L, MCV 85.1, MCH 25.7 L , MCHC 30.2 L, RDW Std Deviation 60.5 H, RDW Coeff of Drew 20.0 H, Plt Count 208, MPV 9.5, Immature Gran % (Auto) 0.300, Neut % (Auto) 79.2 H, Lymph % (Auto) 13.[address] L, [facility] % (Auto) 6.5, Eos % (Auto) 0.1, Baso % (Auto) 0.3, Absolute Neuts (auto) 5.7, Absolute Lymphs (auto) 0.98, Nucleated RBC % 0 05/16/20 10:20: Blood Type B POSITIVE, Antibody Screen NEGATIVE 05/17/20 04:30: WBC Pending, RBC Pending, Hgb Pending, Hct Pending, MCV Pending, MCH Pending, MCHC Pending, RDW Std Deviation Pending, RDW Coeff of Drew Pending, Plt Count Pending Current Medications Acetaminophen (Tylenol) 1,000 mg PO Q6H DENISE Last Admin: 05/17/20 00:50 Dose: 1,000 mg Documented by: Bisacodyl (Dulcolax) 10 mg RECTAL UD PRN PRN Reason: If no BM Diphenhydramine HCl (Benadryl) 25 mg PO Q6H PRN PRN PRN Reason: ITCHING Stop: 05/17/20 13:52 Enoxaparin Sodium (Lovenox) 40 mg SC DAILY@2200 DENISE Last Admin: 05/17/20 01:29 Dose: 40 mg Documented by: Hydrocortisone (Hytone) 1 applic TOPICAL TID PRN PRN; Protocol PRN Reason: Discomfort Lactated Ringer's () 1,000 mls @ 100 mls/hr IV .Q10H [facility] Last Infusion: 05/17/20 04:11 Dose: Infused Documented by: Naloxone HCl 4 mg/ Dextrose 504 mls @ 0 mls/hr IV .Q0M PRN; Protocol PRN Reason: Respiratory depression Cefazolin Sodium () 1 gm in 50 mls @ 100 mls/hr IV Q8H [facility] Last Admin: 05/17/20 04:28 Dose: 100 mls/hr Documented by: Ibuprofen (Motrin) 600 mg PO Q6 DENISE Ketorolac Tromethamine (Toradol (Bkc)) 30 mg IV Q6H [facility] Stop: 05/17/20 13:31 Last Admin: 05/17/20 01:04 Dose: 30 mg Documented by: Methylergonovine Maleate (Methergine) 0.2 mg IM X1 PRN PRN Reason: Uterine Atony Naloxone HCl (Narcan) 0.02 mg IV Q1M PRN PRN Reason: RR <10 and pt unresponsive Ondansetron HCl (Zofran) 4 mg IV Q4H PRN PRN PRN Reason: Nausea Oxycodone HCl (Oxyir) 5 - 10 mg PO Q4H PRN PRN PRN Reason: Pain Score 4-10/10 Prochlorperazine Edisylate (Compazine Iv) 10 mg IV Q6H PRN PRN PRN Reason: NAUSEA Senna/Docusate Sodium (Senokot-S, Mariaelena-Colace) 1 - 2 tablet PO DAILY [facility] Simethicone (Mylicon) 80 mg PO PCHS PRN PRN Reason: Indigestion/stomach pain Sodium Chloride () 5 - 15 ml IV UD PRN PRN Reason: SALINE FLUSH Last Admin: 05/17/20 01:05 Dose: 10 ml Documented by: Medical Necessity - Tobacco Use Smoking Status: Former smoker Assessment/Plan Doing well post operative day #1 status post routine repeat section. Continuing present care.
[2020-05-17 04:48] LABS: Hematocrit 30.5 % (37-47); Hemoglobin 9.4 g/dL (12.0-15.0); Mean Corp Hgb Conc 30.8 g/dL (32-36); Mean Corpuscular Hgb 26.6 pg (27.0-32.0); Mean Corpuscular Volume 86.2 fL (81-99); Mean Platelet Vol. 9.3 fl (6.2-12.0); POSITIVE MORPHOLOGY YES; Platelet Count 189 K/mm3 (150-450); RBC Distribution Width CV 20.1 % (11.6-14.6); Red Blood Count 3.54 M/mm3 (4.2-5.4); White Blood Count 10.4 K/mm3 (4.4-11.0)
[2020-05-17 04:51] LABS: Scan Indicated on CBC? Y/N YES- FLAGS NOTED
[2020-05-17 05:17] LABS: Differential Comment SCANNED
[2020-05-17] MEDS: Senna/Docusate Sodium 1 Tablet PO (08:59)
[2020-05-17] MEDS: Ibuprofen 600 MG Tablet PO (20:48)
[2020-05-18] MEDS: Acetaminophen 500 MG Tablet 1000 MG PO ×2 (00:55→07:06)
[2020-05-18] MEDS: Ibuprofen 600 MG Tablet PO ×2 (02:44→08:55)
[2020-05-18 02:47] VITALS: BP 118/61; PULSE 83; RESP 16; TEMP 36.4; O2SAT 98
[2020-05-18 08:45] VITALS: BP 110/59; PULSE 86; RESP 16; TEMP 36.6; O2SAT 98
--- NOTE | 2020-05-18 08:46 | PN.OBGYN_ITS ---
Subjective: Feeling well today. Would like to discharge. Denies uncontrolled pain or heavy bleeding. Reports tolerating a regular diet, ambulating in her room, urinating well and passing flatus. Cramping, but controlled with oral medication. Objective: VSS. fundus is firm, midline, u/1. Surgical mepilex CDI. Lochia rubra moderate. - Physical Exam Vitals/I&O's: Vital Signs Temp Pulse Resp BP Pulse Ox 97.5 F L 83 16 118/61 98 05/18/20 02:47 05/18/20 02:47 05/18/20 02:47 05/18/20 02:47 05/18/20 02:47 Oxygen Delivery Method Room Air Weight: 107.048 kg Body Mass Index (BMI) 41.8 Intake and Output for Last 24 Hours 05/16/20 05/17/20 05/18/20 23:59 23:59 23:59 Intake Total 3940.67 / 3940.67 1318.33 / 1318.33 Output Total 850 / 850 1600 / 1600 Balance 3090.67 / 3090.67 -281.67 / -281.67 General: Alert, Oriented x3, Cooperative HEENT: Atraumatic, PERRLA, EOMI, Normocephalic Neck: Supple, No JVD, Negative Carotid Bruits Lungs: Clear to auscultation, Normal air movement Cardiovascular: Regular rate, No murmurs Abdomen: Bowel Sounds Present, Soft, Non Tender Extremities: No edema, Capillary Refill Less than 3 Seconds Skin: No rashes, No breakdown Musculoskeletal: No Tenderness to Palpation of Joints or Extremities Neurological: Cranial nerves II-XII grossly intact Psych/Mental Status: Normal Affect, Appropriate Current Medications Acetaminophen (Tylenol) 1,000 mg PO Q6H [facility] Last Admin: 05/18/20 07:06 Dose: 1,000 mg Documented by: Bisacodyl (Dulcolax) 10 mg RECTAL UD PRN PRN Reason: If no BM Enoxaparin Sodium (Lovenox) 40 mg SC DAILY@2200 [facility] Last Admin: 05/17/20 22:55 Dose: 40 mg Documented by: Hydrocortisone (Hytone) 1 applic TOPICAL TID PRN PRN; Protocol PRN Reason: Discomfort Naloxone HCl 4 mg/ Dextrose 504 mls @ 0 mls/hr IV .Q0M PRN; Protocol PRN Reason: Respiratory depression Ibuprofen (Motrin) 600 mg PO Q6H [facility] Last Admin: 05/18/20 02:44 Dose: 600 mg Documented by: Methylergonovine Maleate (Methergine) 0.2 mg IM X1 PRN PRN Reason: Uterine Atony Naloxone HCl (Narcan) 0.02 mg IV Q1M PRN PRN Reason: RR <10 and pt unresponsive Ondansetron HCl (Zofran) 4 mg IV Q4H PRN PRN PRN Reason: Nausea Oxycodone HCl (Oxyir) 5 - 10 mg PO Q4H PRN PRN PRN Reason: Pain Score 4-10/10 Prochlorperazine Edisylate (Compazine Iv) 10 mg IV Q6H PRN PRN PRN Reason: NAUSEA Senna/Docusate Sodium (Senokot-S, Mariaelena-Colace) 1 - 2 tablet PO DAILY [facility] Last Admin: 05/17/20 08:59 Dose: 1 tablet Documented by: Simethicone (Mylicon) 80 mg PO PCHS PRN PRN Reason: Indigestion/stomach pain Last Admin: 05/17/20 08:59 Dose: 80 mg Documented by: Sodium Chloride () 5 - 15 ml IV UD PRN PRN Reason: SALINE FLUSH Last Admin: 05/17/20 14:51 Dose: 10 ml Documented by: Medical Necessity - Tobacco Use Smoking Status: Former smoker Assessment/Plan A/P: S/P repeat csection POD #2 Surgical dressing CDI. Instructions on removing this weekend given Has incision check on the 30th mother with no concerns Normal involution and course To discharge home today with dyad stable
[2020-05-18] MEDS: Senna/Docusate Sodium 1 Tablet PO (11:03)
--- NOTE | 2020-05-18 12:00 | CASEMGMT ---
Social Work Brief Assessment Labor and Delivery Unit Patient Address:[address] [place] [address]., [place] [address] Phone number: [phone] Date of Referral/Notification: 05.16.2020 Time of Referral: 2158 Referred By: Dr. Sierra Reason for Referral: maternal history of anxiety Date of Intervention: 05.18.2020 Time of Intervention: 1200 Informant: Medical record and mother of baby (MOB) Princess Oconnell History: SAYRA is a 45-year-old female who delivered baby girl Caity Oconnell on 05-16-2020. Father of baby (FOB) is Dwayne Oconnell. Caity is the first baby for parents together. SAYRA has 3 children from prior relationships Kade is age 16, Murtaza is age 14, and alan curiel is age 10. 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 SAYRA has a history of anxiety. It is reported that SAYRA took 5 doses of 0.5 mg Ativan over the last 2 weeks due to anxiety and itching. Maternal drug screen on 11/02/2019 was negative, baby's urine tox screen at time of delivery is also negative. Assessment: Met with parents briefly as they were getting ready to discharge from the hospital. MOB reports to be able to go home and will have support from family. MOB reports to be looking forward to being at home. No reported concerns with support system, or supplies for the baby. No voiced concerns by nursing staff regarding parent-child interactions. Provided MOB with a packet on depression and anxiety, what to look for, local resources for support, and online and texting support. MOB be accepting of information being provided by social work assistant. MOB with bright affect, good eye contact, and spontaneous conversation. Plan: MOB and baby being discharged home with support from and family. MOB has been provided information on mood and anxiety disorders. At this time there have been no positive drug screens during or after delivery, so no additional referrals are indicated at this time. Will monitor for meconium drug screen. No further needs requested or indicated. -YADIRA Mcguire, SIL
== END 2020-05-18 12:20 | disposition home or self-care (01) | DRG 788 ==
PROVIDERS: Admitting Provider Obstetrics & Gynecology; Referring Provider Obstetrics & Gynecology; Visit Provider Obstetrics & Gynecology
PROC: 10D00Z1 Extraction of Products of Conception, Low, Open Approach (ICD-10-PCS; CPT 59514; principal; 2020-05-16 12:15)
DX: O65.5 Obstructed labor due to abnormality of maternal pelvic organs (principal); O34.211 Maternal care for low transverse scar from previous cesarean delivery; Z3A.39 39 weeks gestation of pregnancy; Z37.0 Single live birth; Z87.891 Personal history of nicotine dependence; O99.52 Diseases of the respiratory system complicating childbirth; J30.81 Allergic rhinitis due to animal (cat) (dog) hair and dander
CPT/HCPCS: 85025; 85027; 86850; 86900; 86901; 87635; 99218; G2023; J7120; A4216; G0378; U0003

== ENCOUNTER → 2020-06-02 15:50 | Outpatient (CLI) | payer OTHER, SELFPAY ==
[2020-05-16 10:25] VITALS: BMI 41.8
== END ==
PROVIDERS: Visit Provider Obstetrics & Gynecology
DX: R30.0 Dysuria (principal)
CPT/HCPCS: 87086; 87088

== ENCOUNTER → 2020-11-29 13:27 | Outpatient (REF) | payer OTHER, SELFPAY ==
[2020-05-16 10:25] VITALS: BMI 41.8
== END ==
LOC: LABSPEC 13:27
PROVIDERS: Referring Provider Family Medicine; Visit Provider Family Medicine
DX: Z20.828 Contact with and (suspected) exposure to other viral communicable diseases (principal)
CPT/HCPCS: 87635; U0003

== ENCOUNTER → 2021-09-05 15:39 | Outpatient (CLI) | payer OTHER, SELFPAY ==
[2021-09-05 18:05] LABS: Vitamin D,25 Hydroxy 35.7 ng/mL
[2021-09-05 18:13] LABS: Anion Gap 5 (5-15); BUN 11 mg/dL (7-18); BUN/Creat Ratio 13.4 RATIO (10-20); Calcium,Total 8.6 mg/dL (8.5-10.1); Chloride 106 mmol/L (98-107); Cholesterol 186 mg/dL (200); Creatinine, Serum 0.82 mg/dL (0.55-1.02); EST Glomerular Filtration Rate 80 mL/min (>60); Est Glom Filt Rate - Afr Amer 96 mL/min (>60); Glucose 82 mg/dL (74-106); High Density Lipoprotein 55 mg/dL; Sodium Level 138 mmol/L (136-145); Thyroid Stim Hormone (TSH) 0.58 uIU/mL (0.358-3.74); Triglycerides 104 mg/dL; Very Low Density Lipoprotein 21 mg/dL (5-40)
== END ==
PROVIDERS: PCP Family Medicine; Referring Provider Family Medicine; Visit Provider Family Medicine
DX: Z13.220 Encounter for screening for lipoid disorders (principal); Z13.1 Encounter for screening for diabetes mellitus; Z13.29 Encounter for screening for other suspected endocrine disorder; Z13.21 Encounter for screening for nutritional disorder
CPT/HCPCS: 36415; 80048; 80061; 82306; 84443

== ENCOUNTER → 2021-10-23 07:00 | Outpatient (REF) | payer OTHER, SELFPAY | LOC: OLS.WCC 07:00 | PROVIDERS: PCP Family Medicine; Visit Provider Family Medicine | DX: U07.1 COVID-19 (principal) | CPT/HCPCS: 87635; U0005; U0003 ==

== ENCOUNTER 2021-11-21 15:28 | Outpatient (CLI) | payer OTHER, SELFPAY ==
[2021-11-27 20:20] LABS: HPV Reflexed? NOT INDICATED
== END 2021-11-21 23:59 | disposition short-term general hospital (02) ==
LOC: LABSPEC 15:30
PROVIDERS: PCP Family Medicine; Visit Provider Obstetrics & Gynecology
DX: Z12.4 Encounter for screening for malignant neoplasm of cervix (principal)
CPT/HCPCS: 88175; G0145

== ENCOUNTER 2021-12-04 13:53 | Outpatient (CLI) | payer OTHER, SELFPAY ==
--- NOTE | 2021-12-04 13:56 | BI_ITS ---
MAMMOGRAPHY - BILATERAL SCREENING REASON FOR EXAM: Female, 46 years old. Routine annual screening examination. PERTINENT HISTORY: Aunt with breast cancer. History of prior bilateral breast reduction surgery. TECHNIQUE: Digital bilateral breast kailey (3D mammographic acquisition) in the CC and MLO projections. 2-D mediolateral oblique (MLO) and craniocaudad (CC) views of both breasts were obtained. CAD: Full Field Digital Mammography with Computer Added Detection was performed. COMPARISON: Comparison is made with prior study dated 04/27/2019. FINDINGS: Breast Composition: The breasts are heterogeneously dense, which may obscure small masses. There are no dominant masses or suspicious calcifications. Stable small benign-appearing bilateral axillary lymph nodes. No other significant abnormalities are identified. There has been no significant change since the prior study. BI/SCRN MAMM (CAD)W/KAILEY BILAT IMPRESSION: Stable bilateral screening mammogram. Yearly follow-up mammogram recommended. (A) ASSESSMENT CATEGORY: BIRADS Category 2: Benign. A letter regarding these results will be sent to the patient by the facility within 30 days. Approximately 10% of breast cancers are not detected by mammography. A normal mammogram should not delay biopsy of a clinically suspicious abnormality. [id number] Electronically Signed: Sarbjit Morris MD at 14:46 EST ,
== END 2021-12-04 23:59 | disposition short-term general hospital (02) ==
LOC: OPBI 13:54
PROVIDERS: PCP Family Medicine; Referring Provider Obstetrics & Gynecology; Visit Provider Obstetrics & Gynecology
DX: Z12.31 Encounter for screening mammogram for malignant neoplasm of breast (principal)
CPT/HCPCS: 77063; 77067

== ENCOUNTER 2023-01-21 13:30 | Outpatient (RCR) | payer OTHER, SELFPAY ==
--- NOTE | 2023-04-16 12:20 | HP.PT.NRP ---
DYLON BECKFORD was seen in my office for initial evaluation on 12/03/22. The following Plan of Care was established for this patient: Initial Frequency: 2-3x /Week Initial Duration: 8-12 WKS Patient/Client Instruction: Educate patient on: Condition, Plan of Care, Risk Factors For the Purpose of:: To improve self management Therapeutic Exercise to Include: Body mechanics, Postural training, Flexibilty training, Neuromotor development, Dynamic Lumbar Stabilization For the Purpose of:: To decrease pain, To improve muscle performance and motor function, To increase tolerance to activity/condition/position, To improve ability of physical actions for home/community/work/leisure This patient was last seen in our office . Pertinent comments regarding their Physical therapy will appear below: This patient has not returned to Physical Therapy and is appropriate to return to MD for further follow-up as needed. At this point I will be discontinuing this patient from physical therapy. I would be happy to see this patient again in the future if found appropriate by the physician. Thank you! Lisandra Grijalva, PT, Cert MDT
== END 2023-01-21 19:00 | disposition home or self-care (01) ==
LOC: PT 13:30
PROVIDERS: PCP Family Medicine; Referring Provider Urology; Visit Provider Urology
DX: M99.05 Segmental and somatic dysfunction of pelvic region
CPT/HCPCS: 97140; 97162; 97530

== ENCOUNTER → 2023-02-01 | Outpatient (CLI) | payer OTHER, SELFPAY ==
--- NOTE | 2023-02-01 13:48 | CT_ITS ---
STUDY: CT ABDOMEN AND PELVIS WITH AND WITHOUT CONTRAST REASON FOR EXAM: Female, 47 years old. BLADDER PELVIC PAIN RADIATION DOSAGE (If Supplied By Facility): CTDIvol = ( 17.65 ) mGy, DLP = ( 3020.33 ) mGycm TECHNIQUE: Transaxial images were obtained from the dome of the diaphragm to the symphysis pubis without oral contrast. IV 100mL Isovue-300 was administered. Sagittal and coronal images were reconstructed. Individualized dose optimization techniques were used for this CT. COMPARISON: None. FINDINGS: The visualized lung bases are unremarkable. The visualized portions of the heart are within normal limits. Normal liver. Normal gallbladder and extrahepatic biliary system. Normal spleen. Normal pancreas. Normal bilateral adrenal glands. Normal right kidney. Normal left kidney. Normal visualized stomach. Normal small intestine. Normal colon. The appendix is visualized and appears normal. Normal abdominal aorta. Normal inferior vena cava. Normal retroperitoneum. Normal urinary bladder. 3.1 cm cyst in the left ovary. Mildly heterogeneous enlargement of the uterus suggestive of a fibroid uterus. Normal abdominal wall. Mild degree of spondylosis at the L1-L2 level. CT/CT Abd/Pelvis W/WO Contrast IMPRESSION: Findings suggestive of a fibroid uterus with the a 3.1 cm cyst in the left ovary. Electronically Signed: Sarbjit Morris MD at 15:02 EDT ,
== END | disposition home or self-care (01) ==
LOC: CT 13:46
PROVIDERS: PCP Family Medicine; Visit Provider Urology
DX: R39.89 Other symptoms and signs involving the genitourinary system (principal); R10.2 Pelvic and perineal pain; R10.9 Unspecified abdominal pain; M54.9 Dorsalgia, unspecified
CPT/HCPCS: 74178; Q9967

== ENCOUNTER 2023-03-11 06:26 | Day surgery (SDC) | payer OTHER, SELFPAY ==
[2023-03-11] VITALS (7 sets, daily range): BP systolic 89–103; BP diastolic 55–62; PULSE 58–70; RESP 16–18; TEMP 36.3–36.9; O2SAT 96–100; BMI 30.9
[2023-03-11] MEDS: Lactated Ringers 1,000 ML 15 ML IV (06:54)
[2023-03-11 06:58] LABS: Internal QC Validated? YES +Cl - CLEAR BKGD; Pregnancy, Urine Negative Negative
--- NOTE | 2023-03-11 07:01 | PCM.HP.STD ---
HPI - General General Date of Admission: 03/11/23 Date of Service: 03/11/23 Chief Complaint: Screening colonoscopy HPI Narrative DYLON BECKFORD, is a 48 F who presents for a screening colonoscopy. She has never had a colonoscopy in the past. She has no significant past medical history. She is not having any problems with her bowels at this time. She denies any constipation, nausea, vomiting, diarrhea or lower GI bleeding. All other 16 review systems are negative except those are in positive mentioned HPI. [facility] Medical History (Updated 03/06/23 @ 10:21 by Loli Jaime) Adjustment disorder with anxiety Constipation, unspecified Former smoker Low iron Restless legs Unspecified urinary incontinence Home Medications vibegron 75 mg tablet (Gemtesa) 75 mg PO DAILY 01/04/23 [History Last Taken Unknown] Allergy/AdvReac Type Severity Reaction Status Date / Time ethinyl estradiol Allergy Severe Itching Verified 03/11/23 06:53 [From NuvaRing] etonogestrel [From NuvaRing] Allergy Severe Itching Verified 03/11/23 06:53 chlorpheniramine Allergy Other Verified 03/11/23 06:53 [From Tussionex] hydrocodone [From Tussionex] Allergy Other Verified 03/11/23 06:53 Surgical History (Updated 03/06/23 @ 10:21 by Loli Jaime) History of Hx of bilateral breast reduction surgery Social History (Updated 01/04/23 @ 11:44 by Sandra Ding) household members: spouse current occupational status: employed Smoking Status: Former smoker ROS Review of Systems ROS Unobtainable: other Constitutional Constitutional: Denies fatigue, fever(s), poor appetite, weight gain or weight loss ENT HEENT: Denies mouth lesions Cardiovascular Cardiovascular: Denies abdominal bloating, abdominal edema or abdominal pain Respiratory/Chest Respiratory/Chest: Denies change in mental status, change in phlegm color, chest congestion or chest tightness Gastrointestinal Gastrointestinal: Denies belching, bloating, change in bowel habits, change in stool character, chewing difficulty, coffee ground emesis, constipation, cramping, diarrhea, dyspepsia, dysphagia, early satiety, excessive flatus, fecal incontinence, heartburn, hematemesis, hematochezia, hemorrhoids, loose stools, melena, nausea, odynophagia, rectal bleeding, tenesmus, vomiting or weight changes Genitourinary Genitourinary: Denies abdominal discomfort, burning urination or itching Musculoskeletal Musculoskeletal: Reports as per HPI; Denies muscle weakness or myalgias Integumentary Integumentary: Denies jaundice Neurologic Neurologic: Denies lack of coordination or weakness Psychiatric Psychiatric: Denies confusion, depression, memory loss, mood swings, paranoia or suicidal ideation Endocrine Endocrinology: Denies systems reviewed and no addt'l complaints, except as documented Hematologic/Lymphatic Hematologic/Lymphatic: Denies anemia, easy bleeding, easy bruising or lymphadenopathy Allergic/Immunologic Allergic/Immunologic: Denies systems reviewed and no addt'l complaints, except as documented Vital Signs Vital Signs Vital Signs: 03/11/23 06:55 03/11/23 06:55 Temperature 98.5 F Temperature Source Temporal Pulse Rate 70 Respiratory Rate 18 Respiratory Pattern Normal Blood Pressure 103/56 L Blood Pressure Mean 71 Blood Pressure Source Monitor Blood Pressure Position Semi-Fowlers Blood Pressure Location Right Arm Pulse Ox 98 Oxygen Delivery Method Room Air Weight Weight: 175 lb Body Mass Index (BMI) 30.9 Physical Exam Const alert General Appearance: cooperative Orientation / Consciousness: oriented to person HEENT hearing grossly normal bilaterally Head and Scalp: normal to inspection Face and Sinus: face symmetric Nose: external nose normal Mouth: oral and palatal mucosa normal Eyes conjunctivae normal General Eye: normal appearance of both eyes Neck full ROM General: normal visual inspection Lymph Lymphatic: no lymphadenopathy noted Chest inspection of chest normal and palpation of chest normal Chest: symmetrical chest wall rise Resp normal respiratory effort Effort and Inspection: able to speak in complete sentences Cardio regular rate GI non-distended Percussion: normal to percussion Rectal Exam: deferred Neuro Speech: speech normal Gait (Neuro): normal gait Results Lab / Micro Data Labs: Laboratory Results - last 24 hr 03/11/23 06:30: Urine Test Negative Assessment & Plan Assessment/Plan (1) Encounter for screening for malignant neoplasm of colon: PLAN: She was explained alternatives, risk, benefits including outstanding bleeding, infection, sepsis, perforation, need for mergers or . She will have an ASA of 1.
--- NOTE | 2023-03-11 07:30 | COLBX_PTH ---
PATIENT: DYLON BECKFORD LOC: EN U#:[id number] AGE/SX: 48/F ROOM: RE03/11/[address]: Dr. Ok Borges DO : 1975 BED: DIS: 03/11/2023 SPEC #: [id number] RECD: 03/11/23 10:00 STATUS: AWILDA ERWIN #: [id number] RANIJT: 03/11/23 07:[address]: Ok Borges DEPT: SURGICAL PATHOLOGY RECD BY: Latonya Olivera ENTERED: 03/11/23 11:21 SP TYPE: COLON BX OTHR DR: Dr. Mikal Coyle MD Tissues: Ileum, NOS Procedures: Surgery Specimen Level IV HEADER OPERATION: Colonoscopy ? open access (MAC), biopsy PRE-OP DIAGNOSIS: Screening TISSUE SUBMITTED: Terminal ileum biopsy MICROSCOPIC DIAGNOSIS Terminal ileum, biopsy: Fragments of small intestinal mucosa, no pathologic diagnosis. SJ:florian 03/12/2023 MICROSCOPIC DESCRIPTION Slides are reviewed. GROSS DESCRIPTION Received in fixative is one container labeled with the patient's name and designated terminal ileum. The specimen consists of two irregular fragments of light rowe soft tissue that in aggregate measure 1.0 x 0.3 x 0.1 cm. The specimen is totally submitted in one cassette. / SJ:florian 03/11/2023 TC:4 CPT: 66448
--- NOTE | 2023-03-11 07:49 | OP.COLON_ITS ---
Patient Name: Princess Oconnell Procedure Date: 03/11/2023 7:23 AM Date of : 1975 Age: 48 Procedure: Colonoscopy Indications: Screening for colorectal malignant neoplasm Providers: Ok Borges DO Referring MD: Dany Coyle Medicines: Monitored Anesthesia Care Patient Profile: This is a 48 year old female. Refer to note in patient chart for documentation of history and physical. Last Colonoscopy: none. The patient's first colonoscopy is today. Complications: No immediate complications. Procedure: Pre-Anesthesia Assessment: - Prior to the procedure, a History and Physical was performed, and patient medications and allergies were reviewed. The patient is competent. The risks and benefits of the procedure and the sedation options and risks were discussed with the patient. All questions were answered and informed consent was obtained. Patient identification and proposed procedure were verified by the physician in the pre-procedure area. Mental Status Examination: alert and oriented. Airway Examination: normal oropharyngeal airway and neck mobility. Respiratory Examination: clear to auscultation. Prophylactic Antibiotics: The patient does not require prophylactic antibiotics. Prior Anticoagulants: The patient has taken no previous anticoagulant or antiplatelet agents. After reviewing the risks and benefits, the patient was deemed in satisfactory condition to undergo the procedure. The anesthesia plan was to use monitored anesthesia care (MAC). Immediately prior to administration of medications, the patient was re-assessed for adequacy to receive sedatives. The heart rate, respiratory rate, oxygen saturations, blood pressure, adequacy of pulmonary ventilation, and response to care were monitored throughout the procedure. The physical status of the patient was re-assessed after the procedure. After I obtained informed consent, the scope was passed under direct vision. Throughout the procedure, the patient's blood pressure, pulse, and oxygen saturations were monitored continuously. The Colonoscope was introduced through the anus and advanced to the terminal ileum. The colonoscopy was performed without difficulty. The patient tolerated the procedure well. The quality of the bowel preparation was good. Scope In: 7:33:02 AM Scope Withdrawal Time 0 hours 8 minutes 9 seconds Scope Out: 7:44:27 AM Total Procedure Duration Time 0 hours 11 minutes 25 seconds Findings: The perianal and digital rectal examinations were normal. The colon (entire examined portion) appeared normal. The terminal ileum contained a few four mm ulcers. No bleeding was present. Biopsies were taken with a cold forceps for histology. Verification of patient identification for the specimen was done. Estimated blood loss was minimal. Impression: - The entire examined colon is normal. - A few ulcers in the terminal ileum. Biopsied. Recommendation: - Discharge patient to home. - Resume previous diet. - Continue present medications. - Await pathology results. - Repeat colonoscopy in 10 years for screening purposes. Procedure Code(s): --- Professional --- 86809, Colonoscopy, flexible; with biopsy, single or multiple CPT copyright 2017 [employer]. All rights reserved. The codes documented in this report are preliminary and upon automotive brake technician review may be revised to meet current compliance requirements. Ok Borges DO 03/11/2023 7:48:56 AM This report has been signed electronically. Number of Addenda: 0 Note Initiated On: 03/11/2023 7:23 AM
--- NOTE | 2023-03-11 07:50 | OP.CCLET_ITS ---
03/11/2023 Dany Coyle [address] [place] [address] Re : Colonoscopy procedure for Princess Grantted Dear Dr. Coyle This procedure was performed on Saturday, March 11, 2023. My impressions and recommendations are as follows: Impressions : - The entire examined colon is normal. - A few ulcers in the terminal ileum. Biopsied. Recommendations : - Discharge patient to home. - Resume previous diet. - Continue present medications. - Await pathology results. - Repeat colonoscopy in 10 years for screening purposes. My findings are described in the full procedure note, which is enclosed. If I can be of further assistance, please feel free to contact me at . Sincerely, Ok Borges, 03/11/2023 7:48:56 AM This report has been signed electronically.
== END 2023-03-11 08:21 | disposition home or self-care (01) ==
LOC: EN 06:26 → AC 06:28
PROVIDERS: Anesthesiology; PCP Family Medicine; Referring Provider Family Medicine; Visit Provider Internal Medicine Gastroenterology
PROC: 0DJD8ZZ Inspection of Lower Intestinal Tract, Via Natural or Artificial Opening Endoscopic (ICD-10-PCS; CPT 45378; principal; 2023-03-11 07:25)
DX: Z12.11 Encounter for screening for malignant neoplasm of colon (principal); Z87.891 Personal history of nicotine dependence; K63.3 Ulcer of intestine
CPT/HCPCS: 45380; 81025; 88305; J7120; J2405

== ENCOUNTER → 2023-05-02 | Outpatient (CLI) | payer OTHER, SELFPAY ==
[2023-05-02 15:12] LABS: Basophil# 0.05 X10^3/uL; Basophil% 0.5 % (0-1); Eosinophil# 0.12 X10^3/uL; Eosinophils% 1.2 % (0-5); Hematocrit 38.4 % (37-47); Hemoglobin 12.7 g/dL (12.0-15.0); Mean Corp Hgb Conc 33.1 g/dL (32-36); Mean Corpuscular Hgb 29.9 pg (27.0-32.0); Mean Corpuscular Volume 90.4 fL (81-99); Monocyte# 0.51 X10^3/uL; Monocyte% 5.1 % (0-10); NRBC Flagged by Analyzer 0 % (0-5); Neutrophil # 6.96 X10^3/uL (2.7-7.7); Neutrophil % 69.8 % (47-70); Platelet Count 244 K/mm3 (150-450); RBC Distribution Width CV 13.7 % (11.6-14.6); RBC Distribution Width SD 44.2 fl (35.1-43.9); Red Blood Count 4.25 M/mm3 (4.2-5.4)
[2023-05-02 15:33] LABS: Hemoglobin A1c 4.7 % (3.8-5.6)
[2023-05-02 16:02] LABS: hCG Titer Quant., Serum < 1 mIU/mL (1-3)
[2023-05-02 16:14] LABS: Estradiol 148.5 pg/mL; Follicle Stimulating Hormone 8.3 mIU/mL; Luteinizing Hormone 5.9 mIU/mL; Prolactin 10.3 ng/mL; T4 Free Direct 0.99 ng/dL (0.76-1.46); Thyroid Stim Hormone (TSH) 0.91 uIU/mL (0.358-3.74)
== END | disposition home or self-care (01) ==
PROVIDERS: PCP Family Medicine; Visit Provider Nurse Practitioner Women's Health
DX: N93.9 Abnormal uterine and vaginal bleeding, unspecified (principal)
CPT/HCPCS: 82670; 83001; 83002; 83036; 84146; 84439; 84443; 84702; 85025

== ENCOUNTER 2023-08-04 09:52 | Emergency (ER) | payer OTHER, SELFPAY ==
[2023-08-04 09:53] VITALS: BP 120/78; PULSE 79; RESP 14; TEMP 36.6; O2SAT 99; BMI 30.2
--- NOTE | 2023-08-04 11:00 | EDS_ITS ---
HPI History of Present Illness Chief Complaint: Lower Extremity Injury Informant: patient Narrative Narrative: Patient presents with left hip area pain. Patient states she was feeling fine. She had been standing yesterday. She started doing some dancing but states it was no extreme move. She then suddenly felt a sharp pop in the lateral aspect of her left hip and its been painful since. She can bear weight but it hurts. She has no history of this. Rest m akes it better and weightbearing or motion makes it worse. Although the pain is lateral near the greater trochanter. She has no buttock or groin pain. No shortening. No other traumas. No history of frequent fractures. [facility] Medical History Adjustment disorder with anxiety Constipation, unspecified Former smoker Low iron Restless legs Unspecified urinary incontinence Home Medications vibegron 75 mg tablet (Gemtesa) 75 mg PO DAILY 01/04/23 [History Last Taken Unknown] naproxen 500 mg tablet 500 mg PO BID #20 tabs 08/04/23 [Rx Last Taken Unknown] Allergy/AdvReac Type Severity Reaction Status Date / Time ethinyl estradiol Allergy Severe Itching Verified 08/04/23 09:53 [From NuvaRing] etonogestrel [From NuvaRing] Allergy Severe Itching Verified 08/04/23 09:53 chlorpheniramine Allergy Other Verified 08/04/23 09:53 [From Tussionex] hydrocodone [From Tussionex] Allergy Other Verified 08/04/23 09:53 Surgical History History of Hx of bilateral breast reduction surgery Social History household members: spouse current occupational status: employed Smoking Status: Former smoker ROS ROS ED Constitutional Constitutional ED: Denies chills or fever(s) ENT ENT ED: Denies ear pain or sore throat Gastrointestinal Gastrointestinal: Denies nausea or vomiting Musculoskeletal Musculoskeletal: Reports arthralgias; Denies back pain, myalgias or neck pain Integumentary Denies Abrasions or rash Neurologic Neurologic: Denies paresthesias or weakness Allergic/Immunologic Allergic/Immunologic ED: Denies urticaria EXAM Physical Exam Narrative Exam Narrative: General: Patient awake alert sitting comfortably in the bed no acute distress. HEENT shows no sign of trauma. Cardiorespiratory shows easy unlabored breathing. Pulses normal. Saturations are normal. Extremities there is no shortening. No swelling. No rashes. There is no calf swelling tenderness or distended veins. There is no tenderness to the foot ankle edward knee or thigh. She does have some focal tenderness at the greater trochanteric on the left. No real swelling. No inguinal tenderness. I can rotate her hip without pain. I can axial load her hip without pain. All of this seems to be in the greater trochanteric area. Const Vital Signs: 08/04/23 09:53 Temperature 97.9 F Temperature Source Temporal Pulse Rate 79 Respiratory Rate 14 Blood Pressure 120/78 Blood Pressure Mean 92 Pulse Ox 99 Oxygen Delivery Method Room Air MDM MDM MDM Narrative Medical decision making narrative: My independent interpretation of the patient's three-view x-ray of her left hip shows no sign of fracture or dislocation. Final reading is similar. . I think patient likely had tenderness snapping over her greater trochanteric bursa. She has some localized pain and tenderness consistent with a greater trochanteric bursitis. Nonsteroidals rest and ice are appropriate. Radiography Diagnostic Testing: Clinical Impression(s) from Imaging Studies Hip/Pelvis X-Ray 08/04/23 11:25 IMPRESSION: Normal x-ray examination of the pelvis and hip. Electronically Signed: Dean Fuller MD at 11:39 EDT Reading Location ID and State: [address] [place] [address] , Service support , Discharge Plan Triage Chief Complaint: Lower Extremity Injury ED Provider: Drake Pierre Dx/Rx/DC Orders Clinical Impression: Greater trochanteric bursitis of left hip Instructions: ED Bursitis Prescriptions: New naproxen 500 mg tablet 500 mg PO BID Qty: 20 0RF No Action Gemtesa 75 mg tablet 75 mg PO DAILY Primary Care Provider: Dany Coyle Referrals: Dany Coyle MD [Primary Care Provider] - 3-5 Days Disposition Disposition: Home, Self Care
--- NOTE | 2023-08-04 11:25 | RAD_ITS ---
STUDY: X-RAY - PELVIS AND LEFT HIP REASON FOR EXAM: Female, 48 years old. Pain after trauma TECHNIQUE: 3 views of the pelvis and hip. COMPARISON: None. FINDINGS: There is a non-specific bowel gas pattern. Normal visualized soft tissue structures. Normal bilateral iliac wings, sacroiliac joints and visualized sacrum. Normal bilateral superior and inferior pubic rami. Normal pubic symphysis. Normal bilateral ischial tuberosities. Normal visualized femoral head. Normal acetabulum. Normal hip joint. RAD/HIP, UNI W/ Pelvis 2-3 Views IMPRESSION: Normal x-ray examination of the pelvis and hip. Electronically Signed: Dean Fuller MD at 11:39 EDT ,
== END 2023-08-04 12:41 | disposition home or self-care (01) ==
PROVIDERS: Emergency Provider Emergency Medicine; PCP Family Medicine; Visit Provider Emergency Medicine
DX: M70.62 Trochanteric bursitis, left hip (principal); Z87.891 Personal history of nicotine dependence
CPT/HCPCS: 73502; 99282

== ENCOUNTER 2024-06-20 18:10 | Emergency (ER) | payer OTHER, SELFPAY ==
[2024-06-20 18:11] VITALS: BP 116/76; PULSE 78; RESP 16; TEMP 36.5; O2SAT 100; BMI 28.3
--- NOTE | 2024-06-20 18:35 | EDS_ITS ---
HPI HPI - GI History of Present Illness Chief Complaint: Abd Pain Informant: patient and spouse/S.O. Narrative Narrative: 2-day history of persistent mid abdominal pain. Started evening. Has used Tums and Pepto-Bismol with no relief. Over last few hours pain went to right lower quadrant. No fevers or chills. Increasing nausea with no appetite with symptom onset. For in the past. No other abdominal surgeries. No urinary symptoms. Recently finished her menstrual period. No history ovarian issues. Last meal was small around noon today. She drank water prior to arrival. She had last bowel movement was 2 days ago this is not atypical for her. Prior similar symptoms: No PFSH PFSH Medical History Low iron Restless legs Former smoker Constipation, unspecified Unspecified urinary incontinence Adjustment disorder with anxiety Home Medications ?Medication ?Instructions ?Recorded ?Last Taken ?Type NK 06/20/24 Unknown History Allergy/AdvReac Type Severity Reaction Status Date / Time ethinyl estradiol (From Allergy Severe Itching Verified 06/20/24 18:11 NuvaRing) etonogestrel (From NuvaRing) Allergy Severe Itching Verified 06/20/24 18:11 chlorpheniramine (From Allergy Other Verified 06/20/24 18:11 Tussionex) hydrocodone (From Tussionex) Allergy Other Verified 06/20/24 18:11 Surgical History Hx of bilateral breast reduction surgery History of Social History household members: spouse current occupational status: employed Smoking Status: Former smoker ROS ROS ED Constitutional Constitutional ED: Denies chills, fever(s) or sweats Eyes Eyes: Denies change in vision ENT ENT ED: Denies dysphagia or sore throat Cardiovascular Cardiovascular: Denies chest pain, leg edema, palpitations or racing heartbeat Respiratory/Chest Respiratory/Chest: Denies cough, dyspnea or dyspnea on exertion Gastrointestinal Gastrointestinal: Reports abdominal pain and nausea; Denies diarrhea or vomiting Genitourinary Genitourinary ED: Denies dysuria, hematuria or urinary frequency Musculoskeletal Musculoskeletal: Denies back pain, extremity pain or neck pain Integumentary Denies rash or wounds Neurologic Neurologic: Denies headache(s), paresthesias or weakness EXAM Physical Exam Const Vital Signs: 06/20/24 18:11 06/20/24 20:10 06/20/24 21:45 Temperature 97.7 F L 97 F L Temperature Source Temporal Temporal Pulse Rate 78 74 67 Respiratory Rate 16 16 16 Blood Pressure 116/76 104/61 105/67 Blood Pressure Mean 89 75 79 Pulse Ox 100 94 100 Oxygen Delivery Method Room Air Room Air Room Air 06/20/24 22:48 Temperature 97 F L Temperature Source Pulse Rate 68 Respiratory Rate 16 Blood Pressure 106/49 L Blood Pressure Mean 68 Pulse Ox 97 Oxygen Delivery Method Positive well nourished and well developed General Appearance ED: well developed and NAD HEENT Reports moist mucous membranes normocephalic and atraumatic Eyes EOMs intact bilaterally and conjunctivae normal General Eye ED: Yes normal appearance of both eyes Neck no lymphadenopathy and supple General: Negative for tenderness Chest Wall Chest: Negative for tenderness Resp normal respiratory effort and normal air movement Effort and Inspection: symmetric chest movement; Negative for respiratory distress Cardio regular rate, regular rhythm and no murmurs Peripheral Pulses: pulses 2+ throughout GI normal to inspection, nondistended, normoactive bowel sounds GI Narrative: Tender right lower quadrant no guarding or rebound negative Farfan's. Negative Rovsing's. Palpation: Negative for guarding or rebound tenderness present Back/Spine no CVA tenderness and no thoracic nor lumbar tenderness Extremity normal to inspection General Extremety ED: Negative for edema or tenderness General Extremity: Negative for edema Neuro oriented x3 and no sensory deficits noted Sensorium / Orientation: awake and alert Skin no rashes or lesions noted and no wounds MDM MDM MDM Narrative Medical decision making narrative: Interventions / MDM: Differential diagnosis: Abdominal pain, constipation Diagnosis considered but do not suspect: Appendicitis however CT with normal appendix. My EKG interpretation: N/A Imaging independently reviewed and interpreted by myself: CT abdomen pelvis with IV contrast: Moderate stools normal appendix, also read by radiology. External documents reviewed: N/A Test considered but not ordered:N/A ED course: Patient right lower quadrant pain symptoms. Medical progress for 2 days. No fevers. She be made n.p.o. abdominal labs, fluids Zofran morphine will be ordered. CT scan IV contrast ordered for further evaluation. Patient labs are stable. CT scan negative for appendicitis. I did discuss with on-call surgeon Dr. Aguirre who did review the images, noticing also normal appendix. Reevaluate patient patient improving. She still slight pain right lower quadrant there is no guarding or rebound. I discussed symptoms could be very early appendicitis. Discussed options for potential observation in the hospital versus watch at home with clear liquid diet. She elects outpatient monitoring with strict return precautions. Discussed stools noted in her colon however no impaction was noted no obstruction. All questions were answered. Re-evaluation: stable Disposition discussed with patient/family/significant other: Patient significant other Case discussed with consulting clinician: General Surgery This note was generated with [employer] dictation software. It may contain incorrect words, spelling, and punctuation that were not noted in checking the note before signing. Lab Data Attestation: I reviewed the patient's lab results. Labs: Laboratory Results - last 24 hr 06/20/24 18:45 WBC 7.2 RBC 4.83 Hgb 14.3 Hct 43.7 MCV 90.5 MCH 29.6 MCHC 32.7 RDW Std Deviation 44.8 H RDW Coeff of Drew 13.4 Plt Count 249 MPV 9.4 Immature Gran % (Auto) 0.300 Neut % (Auto) 72.9 H Lymph % (Auto) 16.5 L Alcorn % (Auto) 9.0 Eos % (Auto) 1.0 Baso % (Auto) 0.3 Absolute Neuts (auto) 5.3 Absolute Lymphs (auto) 1.19 Nucleated RBC % 0 Sodium 138 Potassium 3.8 Chloride 106 Carbon Dioxide 27.0 Anion Gap 5 BUN 12 Creatinine 0.95 Estim Creat Clear Calc 69.09 Est GFR (MDRD) Af Amer 81 Est GFR (MDRD) Non-Af 67 BUN/Creatinine Ratio 12.7 Glucose 88 Calcium 8.9 Total Bilirubin 0.30 AST 12 L ALT 13 Alkaline Phosphatase 114 Total Protein 7.4 Albumin 3.9 Globulin 3.5 Albumin/Globulin Ratio 1.1 Lipase 46 Serum , Qual NEGATIVE Radiography Diagnostic Testing: Clinical Impression(s) from Imaging Studies Abdomen/Pelvis CT 06/20/24 19:45 IMPRESSION: Prominent wall of the urinary bladder may be due to cystitis versus suboptimal distention. No other acute findings. No evidence of acute appendicitis. Electronically Signed: Suzy Olmstead MD at 20:44 EDT , Discharge Plan Triage Chief Complaint: Abd Pain ED Provider: Tommy Salmeron Dx/Rx/DC Orders Clinical Impression: Abdominal pain, RLQ, Nausea Instructions: Abdominal Pain Prescriptions: No Action NK Primary Care Provider: Mikal Coyle Referrals: Mikal Coyle MD [Primary Care Provider] - 3-5 Days Activity Restrictions/Additional Instructions: Normal appendix on CT, labs are stable. Moderate amount of stool was noted on CT. No obstruction. Liquid diet for next 24 hours, monitor symptoms, symptoms progressed and worsened right lower quadrant, return to the ED for reevaluation. Print Language: Cook Islander Disposition Disposition: Home, Self Care Discharge Date/Time: 06/20/24 22:50
[2024-06-20 18:55] LABS: Absolute Lymphocyte Count 1.19 X10^3/uL (0.83-4.51); Absolute Neutrophil Count 5.3 X10^3/uL (2.0-7.7); Basophil# 0.02 X10^3/uL; Basophil% 0.3 % (0-1); Eosinophil# 0.07 X10^3/uL; Hematocrit 43.7 % (37-47); Hemoglobin 14.3 g/dL (12.0-15.0); Lymphocyte # 1.19 X10^3/ul (0.83-4.51); Lymphocyte % 16.5 % (19-41); Mean Corp Hgb Conc 32.7 g/dL (32-36); Mean Corpuscular Hgb 29.6 pg (27.0-32.0); Mean Corpuscular Volume 90.5 fL (81-99); Mean Platelet Vol. 9.4 fl (6.2-12.0); Monocyte# 0.65 X10^3/uL; NRBC Flagged by Analyzer 0 % (0-5); Neutrophil # 5.26 X10^3/uL (2.7-7.7); Neutrophil % 72.9 % (47-70); Platelet Count 249 K/mm3 (150-450); RBC Distribution Width CV 13.4 % (11.6-14.6); RBC Distribution Width SD 44.8 fl (35.1-43.9); Red Blood Count 4.83 M/mm3 (4.2-5.4); White Blood Count 7.2 K/mm3 (4.4-11.0)
[2024-06-20 19:13] LABS: Internal QC Validated? YES +Cl - CLEAR BKGD; Pregnancy, Serum, hCG Quali. NEGATIVE Negative; Record Kit Lot#, Serum Preg. 772476
[2024-06-20 19:19] LABS: ALB/GLOB Ratio 1.1 RATIO (0.9-2.4); AST(SGOT) 12 U/L (15-37); Alanine Aminotransfer ALT/SGPT 13 U/L (13-56); Albumin, Serum 3.9 g/dL (3.2-5.0); Alkaline Phosphatase 114 U/L (45-117); Anion Gap 5 (5-15); BUN 12 mg/dL (7-18); BUN/Creat Ratio 12.7 RATIO (10-20); Calcium,Total 8.9 mg/dL (8.5-10.1); Chloride 106 mmol/L (98-107); Creatinine, Serum 0.95 mg/dL (0.55-1.02); EST Glomerular Filtration Rate 67 mL/min (>60); Est Glom Filt Rate - Afr Amer 81 mL/min (>60); Estimated Creatinine Clearance 69.09 ml/min; Globulin 3.5 g/dL (2.2-4.2); Glucose 88 mg/dL (74-106); Lipase 46 U/L (13-75); Potassium 3.8 mmol/L (3.5-5.1); Protein, Total 7.4 g/dL (6.4-8.2); Sodium Level 138 mmol/L (136-145)
--- NOTE | 2024-06-20 19:45 | CT_ITS ---
EXAM: CT Abdomen And Pelvis W/ Contrast Injection HISTORY: RLQ pain TECHNIQUE: Routine protocol CT abdomen pelvis. IV Contrast: IV 100mL [id number] . Oral Contrast: without. Sagittal and coronal images were reconstructed. RADIATION DOSAGE (If Supplied By Facility): CTDIvol = ( 14.32 ) mGy, DLP = ( 633.17 ) mGycm Individualized dose optimization techniques were used for this CT. COMPARISON: CT abdomen and pelvis 02/01/2023. LIMITATIONS: None. FINDINGS: LOWER CHEST: Lung bases are clear. LIVER: Unremarkable. GALLBLADDER/BILE DUCTS: Unremarkable. PANCREAS: Unremarkable. SPLEEN: Unremarkable. ADRENAL GLANDS: Unremarkable. KIDNEYS / URETERS: Unremarkable. BOWEL / MESENTERY: Unremarkable. No bowel obstruction. Moderate amount stool in colon. APPENDIX: Identified and normal. No evidence of acute appendicitis. PERITONEUM: No free air. Small amount of free fluid in the pelvis. VESSELS: Abdominal aorta is normal caliber. RETROPERITONEUM: Unremarkable. REPRODUCTIVE ORGANS: Unremarkable. BLADDER: Minimally distended. Prominent wall. ABDOMINAL WALL: Unremarkable. BONES: No acute abnormality. OTHER: None. CT/Abdomen/Pelvis W IV Cont ONLY IMPRESSION: Prominent wall of the urinary bladder may be due to cystitis versus suboptimal distention. No other acute findings. No evidence of acute appendicitis. Electronically Signed: Suzy Olmstead MD at 20:44 EDT ,
[2024-06-20 20:10] VITALS: BP 104/61; PULSE 74; RESP 16; O2SAT 94
[2024-06-20 21:45] VITALS: BP 105/67; PULSE 67; RESP 16; TEMP 36.1; O2SAT 100
[2024-06-20 22:48] VITALS: BP 106/49; PULSE 68; RESP 16; TEMP 36.1; O2SAT 97
== END 2024-06-20 22:50 | disposition home or self-care (01) ==
PROVIDERS: Emergency Provider Emergency Medicine; PCP Family Medicine; Visit Provider Emergency Medicine
DX: R10.31 Right lower quadrant pain (principal); R11.0 Nausea; Z87.891 Personal history of nicotine dependence
CPT/HCPCS: 74177; 80053; 83690; 84703; 85025; 96361; 96374; 96375; 99284; J7030; Q9967; J2405

== ENCOUNTER → 2025-06-22 | Outpatient (CLI) | payer OTHER, SELFPAY ==
[2025-06-25 16:09] LABS: HPV APTIMA, High Risk Negative (Negative)
== END | disposition home or self-care (01) ==
LOC: LABSPEC 12:11
PROVIDERS: PCP Family Medicine; Visit Provider Family Medicine
DX: Z01.419 Encounter for gynecological examination (general) (routine) without abnormal findings (principal)
CPT/HCPCS: 87624; 88175; G0145